=== PATIENT | female | born 1965 | race Caucasian/White ===

== ENCOUNTER 2019-09-24 09:54 | Outpatient (CLI) | payer MEDICARE, SELFPAY ==
--- NOTE | 2019-09-24 10:02 | MM_ITS ---
WS: [id number] BILATERAL DIGITAL SCREENING MAMMOGRAPHY WITH CAD CLINICAL INFORMATION: SCREENING HISTORY: Screening mammogram. No current complaints. COMPARISON: 2016 TECHNIQUE: Bilateral CC and MLO views. FINDINGS: Scattered fibroglandular densities bilaterally. Stable bilateral intramammary lymph nodes. No suspici ous focal mass, asymmetry, calcifications, or architectural distortion. No evidence of malignancy. MM/[place] [id number] IMPRESSION: BI-RADS: 2-Benign FOLLOW UP: 1 Year Follow-up Recommend return to annual screening mammography.
== END 2019-09-24 09:55 | disposition home or self-care (01) ==
LOC: RADSHAW 09:58
PROVIDERS: Family Provider Family Medicine; PCP Family Medicine; Visit Provider Family Medicine
DX: Z12.31 Encounter for screening mammogram for malignant neoplasm of breast (principal)
CPT/HCPCS: 77067

== ENCOUNTER → 2020-04-05 08:50 | Outpatient (BNVA) | payer MEDICARE, SELFPAY | PROVIDERS: Family Provider Family Medicine; PCP Family Medicine; Visit Provider Internal Medicine Rheumatology | DX: M54.89 Other dorsalgia (principal); Z11.59 Encounter for screening for other viral diseases; Z79.899 Other long term (current) drug therapy; Z11.1 Encounter for screening for respiratory tuberculosis; M25.50 Pain in unspecified joint; Z15.89 Genetic susceptibility to other disease; F17.210 Nicotine dependence, cigarettes, uncomplicated; G89.29 Other chronic pain | CPT/HCPCS: 36415; 80076; 82565; 85025; 85651; 86140; 86480; 86704; 86803; 86812; 87340; 99204 ==

== ENCOUNTER 2020-04-11 07:46 | Outpatient (CLI) | payer MEDICARE, SELFPAY ==
--- NOTE | 2020-04-11 08:00 | XR_ITS ---
WS: [id number] CHEST 2 VIEWS HISTORY: inflammatory arthritis COMPARISON: None available. Lungs: Clear with no abnormality. No pleural effusion or pneumothorax. Cardiac size: Normal. Mediastinum/Aorta: Normal mediastinum. Bones: Normal. Normal distal clavicles. XR/XR chest 2V* [id number] IMPRESSION: Normal chest.
--- NOTE | 2020-04-11 08:15 | XR_ITS ---
WS: [id number] RIGHT HAND: 3 VIEW(S) TECHNIQUE: PA, oblique and lateral. HISTORY: inflammatory arthritis COMPARISON: 03/07/2009 No acute fracture or dislocation. No soft tissue or bone abnormality. No erosions. Normal ulnar styloid. XR/XR hand RT min 3V* [id number] IMPRESSION: Normal RIGHT hand.
--- NOTE | 2020-04-11 08:30 | XR_ITS ---
WS: [id number] RIGHT FOOT: 3 VIEW(S) TECHNIQUE: AP, oblique and lateral. HISTORY: inflammatory arthritis COMPARISON: None available. No acute fracture or dislocation. Normal tarsal/metatarsal alignment. No soft tissue abnormality or bone destruction. XR/XR foot RT min 3V* [id number] IMPRESSION: Normal RIGHT foot.
--- NOTE | 2020-04-11 08:45 | XR_ITS ---
WS: [id number] CERVICAL SPINE 3 VIEWS HISTORY: inflammatory arthritis COMPARISON: 02/03/2013 Normal posterior lumbar alignment. Mild disc space narrowing at C5-6 with osteophytes. No fractures o r prevertebral soft tissue swelling. Lateral masses of C1 and C2 are aligned. Soft tissues are normal. XR/XR cervical spine 3V* [id number] IMPRESSION: Mild spondylosis at C5-6.
--- NOTE | 2020-04-11 11:00 | XR_ITS ---
WS: [id number] PELVIS: AP VIEW SUBMITTED HISTORY: inflammatory arthritis COMPARISON: None available. Prior posterior lumbar fusion at L5-S1. SI joints are symmetric. No erosions or sclerosis. Normal hip joints. No enthesopathy. XR/XR pelvis 1-2V* [id number] IMPRESSION: No inflammatory arthropathy.
--- NOTE | 2020-04-11 11:15 | XR_ITS ---
WS: [id number] LEFT HAND: 3 VIEW(S) TECHNIQUE: PA, oblique and lateral. HISTORY: inflammatory arthritis COMPARISON: 03/07/2009 No acute fracture or dislocation. No soft tissue or bone abnormality. No erosions or enthesitis or osteopenia. Radial styloid is normal. XR/XR hand LT min 3V* [id number] IMPRESSION: Normal LEFT hand.
--- NOTE | 2020-04-11 11:30 | XR_ITS ---
WS: [id number] LEFT FOOT: 3 VIEW(S) TECHNIQUE: AP, oblique and lateral. HISTORY: inflammatory arthritis COMPARISON: None available. No acute fracture or dislocation. No erosions or osteopenia. Normal tarsal/metatarsal alignment. No soft tissue abnormality or bone destruction. XR/XR foot LT min 3V* [id number] IMPRESSION: Normal LEFT foot.
== END 2020-04-11 07:47 | disposition home or self-care (01) ==
LOC: RADWPI 07:49
PROVIDERS: Family Provider Family Medicine; PCP Family Medicine; Visit Provider Internal Medicine Rheumatology
DX: M19.90 Unspecified osteoarthritis, unspecified site (principal); M47.812 Spondylosis without myelopathy or radiculopathy, cervical region
CPT/HCPCS: 71046; 72040; 72170; 73130; 73630

== ENCOUNTER → 2020-05-11 14:48 | Outpatient (BNVA) | payer MEDICARE, SELFPAY | PROVIDERS: Family Provider Family Medicine; PCP Family Medicine; Visit Provider Internal Medicine Rheumatology | DX: M25.50 Pain in unspecified joint (principal); Z15.89 Genetic susceptibility to other disease; Z79.899 Other long term (current) drug therapy; M54.5 Low back pain; G89.29 Other chronic pain; F17.210 Nicotine dependence, cigarettes, uncomplicated | CPT/HCPCS: 99214 ==

== ENCOUNTER → 2020-06-14 12:53 | Outpatient (BNVA) | payer MEDICARE, SELFPAY | PROVIDERS: Family Provider Family Medicine; PCP Family Medicine; Visit Provider Internal Medicine Rheumatology | DX: Z79.899 Other long term (current) drug therapy (principal) | CPT/HCPCS: 36415; 80076; 82565; 85025; 85651; 86140 ==

== ENCOUNTER 2020-06-19 13:09 | Outpatient (CLI) | payer MEDICARE, SELFPAY ==
--- NOTE | 2020-06-19 14:30 | CT_ITS ---
WS: [id number] CT PELVIS WITHOUT HISTORY: to rule out sacroiliitis TECHNIQUE: Contiguous imaging is performed of the pelvis without contrast. Coronal and sagittal refor mats are reviewed. All CT scans at [facility] use at least one of these dose optimization techniques: automated exposure control; mA and/or kV adjustment per patient size (includes targeted exams where dose is matched to clinical indication); or iterative reconstruction. DLP: 792.35 mGycm COMPARISON: 03/19/2010 Prior lumbar fusion at L5-S1. No acute fractures or bone destruction. The SI joints are symmetric alysia aterally. No fusion or sclerosis. Very small erosion noted involving the sacral side the LEFT SI join t measuring 3 mm. This erosion was not definitely seen on the study from 2009. There is no sclerosis or fusion. No pelvic masses. Urinary bladder is minimally distended. Medicinal tablet in the distal GI tract. CT/CT pelvis wo con [id number] IMPRESSION: 1. Single 3 mm erosion sacral side of the LEFT SI joint. 2. No fusion or ankylosis. 3. Prior L5-S1 posterior fusion.
== END 2020-06-19 13:10 | disposition home or self-care (01) ==
LOC: RADWPI 13:14
PROVIDERS: Family Provider Family Medicine; PCP Family Medicine; Visit Provider Internal Medicine Rheumatology
DX: Z15.89 Genetic susceptibility to other disease (principal); M19.90 Unspecified osteoarthritis, unspecified site; M54.5 Low back pain; G89.29 Other chronic pain; Z98.1 Arthrodesis status
CPT/HCPCS: 72192

== ENCOUNTER → 2020-08-08 12:49 | Outpatient (BNVA) | payer MEDICARE, SELFPAY | PROVIDERS: Family Provider Family Medicine; PCP Family Medicine; Visit Provider Internal Medicine Rheumatology | DX: M19.90 Unspecified osteoarthritis, unspecified site (principal); M54.5 Low back pain; G89.29 Other chronic pain; Z79.899 Other long term (current) drug therapy; Z15.89 Genetic susceptibility to other disease; M46.1 Sacroiliitis, not elsewhere classified; F17.210 Nicotine dependence, cigarettes, uncomplicated | CPT/HCPCS: 99214 ==

== ENCOUNTER → 2020-12-25 10:34 | Outpatient (BNVA) | payer MEDICARE, SELFPAY | PROVIDERS: PCP Nurse Practitioner Family; Visit Provider Internal Medicine Rheumatology | DX: M19.90 Unspecified osteoarthritis, unspecified site (principal); M54.89 Other dorsalgia; Z15.89 Genetic susceptibility to other disease; M45.9 Ankylosing spondylitis of unspecified sites in spine; M46.1 Sacroiliitis, not elsewhere classified; Z79.899 Other long term (current) drug therapy; F17.210 Nicotine dependence, cigarettes, uncomplicated | CPT/HCPCS: 99214 ==

== ENCOUNTER → 2021-04-09 13:28 | Outpatient (BNVA) | payer MEDICARE, SELFPAY | PROVIDERS: PCP Nurse Practitioner Family; Visit Provider Internal Medicine Rheumatology | DX: M19.90 Unspecified osteoarthritis, unspecified site (principal); M54.89 Other dorsalgia; Z15.89 Genetic susceptibility to other disease; M45.9 Ankylosing spondylitis of unspecified sites in spine; Z79.899 Other long term (current) drug therapy; M46.1 Sacroiliitis, not elsewhere classified; F17.200 Nicotine dependence, unspecified, uncomplicated | CPT/HCPCS: 99214 ==

== ENCOUNTER 2021-06-06 09:49 | Outpatient (CLI) | payer MEDICARE, SELFPAY ==
--- NOTE | 2021-06-06 09:57 | MM_ITS ---
WS: [id number] BILATERAL SCREENING DIGITAL MAMMOGRAM WITH CAD HISTORY: SCREENING COMPARISON: 09/24/2019, 04/22/2017 Bilateral CC and MLO views submitted. Computer aided detection analyzed. Breast composition: There are scattered areas of fibroglandular density. No suspicious masses, microc alcifications or architectural distortion. Asymmetries in the RIGHT breast are stable. Benign calcifi cations are scattered within each breast. MM/[place] [id number] IMPRESSION: BI-RADS: 2-Benign FOLLOW UP: 1 Year Follow-up
== END 2021-06-06 09:50 | disposition home or self-care (01) ==
LOC: RADSHAW 09:52
PROVIDERS: PCP Nurse Practitioner Family; Visit Provider Nurse Practitioner Family
DX: Z12.31 Encounter for screening mammogram for malignant neoplasm of breast (principal)
CPT/HCPCS: 77067

== ENCOUNTER → 2021-06-28 09:51 | Outpatient (BNVA) | payer MEDICARE, SELFPAY | PROVIDERS: PCP Nurse Practitioner Family; Visit Provider Internal Medicine Rheumatology | DX: M19.90 Unspecified osteoarthritis, unspecified site (principal); M45.9 Ankylosing spondylitis of unspecified sites in spine; Z79.899 Other long term (current) drug therapy | CPT/HCPCS: 36415; 80076; 82565; 85025; 86140 ==

== ENCOUNTER → 2021-08-14 13:20 | Outpatient (BNVA) | payer MEDICARE, SELFPAY | PROVIDERS: PCP Nurse Practitioner Family; Visit Provider Internal Medicine Rheumatology | DX: M45.9 Ankylosing spondylitis of unspecified sites in spine (principal); Z15.89 Genetic susceptibility to other disease; M46.1 Sacroiliitis, not elsewhere classified; Z79.899 Other long term (current) drug therapy; Z98.1 Arthrodesis status; Z71.89 Other specified counseling | CPT/HCPCS: 99214 ==

== ENCOUNTER → 2021-12-12 10:25 | Outpatient (BNVA) | payer MEDICARE, SELFPAY | PROVIDERS: PCP Nurse Practitioner Family; Visit Provider Internal Medicine Rheumatology | DX: M19.90 Unspecified osteoarthritis, unspecified site (principal); M54.89 Other dorsalgia; M45.9 Ankylosing spondylitis of unspecified sites in spine; Z79.899 Other long term (current) drug therapy | CPT/HCPCS: 80076; 82565; 85025; 86140 ==

== ENCOUNTER → 2021-12-20 09:14 | Outpatient (BNVA) | payer MEDICARE, SELFPAY | PROVIDERS: PCP Nurse Practitioner Family; Visit Provider Internal Medicine Rheumatology | DX: M19.90 Unspecified osteoarthritis, unspecified site (principal); Z15.89 Genetic susceptibility to other disease; M45.9 Ankylosing spondylitis of unspecified sites in spine; M46.1 Sacroiliitis, not elsewhere classified; Z79.899 Other long term (current) drug therapy; Z71.89 Other specified counseling | CPT/HCPCS: 99214 ==

== ENCOUNTER → 2022-04-03 10:02 | Outpatient (BNVA) | payer MEDICARE, SELFPAY | PROVIDERS: PCP Nurse Practitioner Family; Visit Provider Internal Medicine Rheumatology | DX: Z98.1 Arthrodesis status (principal); M19.90 Unspecified osteoarthritis, unspecified site; Z15.89 Genetic susceptibility to other disease; M45.9 Ankylosing spondylitis of unspecified sites in spine; M46.1 Sacroiliitis, not elsewhere classified; Z79.899 Other long term (current) drug therapy; Z71.89 Other specified counseling | CPT/HCPCS: 99214 ==

== ENCOUNTER → 2022-07-29 10:47 | Outpatient (BNVA) | payer MEDICARE, SELFPAY | PROVIDERS: PCP Nurse Practitioner Family; Visit Provider Internal Medicine Rheumatology | DX: M46.90 Unspecified inflammatory spondylopathy, site unspecified (principal); Z79.899 Other long term (current) drug therapy; Z15.89 Genetic susceptibility to other disease; M46.1 Sacroiliitis, not elsewhere classified; Z71.89 Other specified counseling; Z98.1 Arthrodesis status | CPT/HCPCS: 80076; 82565; 85025; 86140; 99214 ==

== ENCOUNTER 2022-09-23 13:49 | Outpatient (CLI) | payer MEDICARE, SELFPAY ==
[2022-09-23 14:45] LABS: Basophils # 0.1 10^3/uL (0.0-0.1); Basophils % 0.8 %; Eosinophils # 0.1 10^3/uL (0.0-0.8); Eosinophils % 0.6 %; Hematocrit 47.2 % (37.0-47.0); Hemoglobin 15.2 g/dL (11.5-15.3); Lymphocytes # 2.1 10^3/uL (0.8-4.8); Lymphocytes % 26.5 %; Mean Corpuscular HGB Conc 32.2 g/dL (30.0-36.0); Mean Corpuscular Hemoglobin 32.6 pg (28.0-34.0); Mean Corpuscular Volume 101.3 fl (81-99); Mean Platelet Volume 10.6 fL (7.4-10.4); Monocytes # 0.5 10^3/uL (0.2-0.9); Monocytes % 6.5 %; Neutrophils # 5.11 10^3/uL (1.8-7.7); Neutrophils % 65.1 %; Nucleated Red Blood Cells % 0 %; Platelet Count 195 10^3/cmm (130-400); Red Blood Count 4.66 10^6/uL (4.1-5.3); Red Cell Distribution Width 12.7 % (12.1-15.1); White Blood Count 7.9 10^3/uL (4.0-10.0)
[2022-09-23 15:02] LABS: Albumin Level 4.4 g/dL (3.5-5.2); Alkaline Phosphatase 57 U/L (35-105); Globulin 3.2 g/dL (1.3-4.6); Glomerular Filtration Rate 86.9 mL/min (90-130); Total Bilirubin 0.6 mg/dL (0.15-1.2); Total Protein 7.6 g/dL (6.6-8.7)
[2022-09-23 15:07] LABS: Alanine Aminotransferase 37 U/L (0-33); Aspartate Amino Transferase 36 U/L (0-32)
== END 2022-09-23 13:50 | disposition home or self-care (01) ==
LOC: LAB 13:51
PROVIDERS: PCP Nurse Practitioner Family; Visit Provider Internal Medicine Rheumatology
DX: M45.9 Ankylosing spondylitis of unspecified sites in spine (principal); Z79.899 Other long term (current) drug therapy; M19.90 Unspecified osteoarthritis, unspecified site
CPT/HCPCS: 36415; 80076; 82565; 85025; 86140

== ENCOUNTER → 2022-10-08 10:22 | Outpatient (BNVA) | payer MEDICARE, SELFPAY | PROVIDERS: PCP Nurse Practitioner Family; Visit Provider Internal Medicine Rheumatology | DX: M46.90 Unspecified inflammatory spondylopathy, site unspecified (principal); Z15.89 Genetic susceptibility to other disease; M46.1 Sacroiliitis, not elsewhere classified; Z79.899 Other long term (current) drug therapy; Z71.89 Other specified counseling; Z98.1 Arthrodesis status; Z79.52 Long term (current) use of systemic steroids; K21.9 Gastro-esophageal reflux disease without esophagitis | CPT/HCPCS: 99214 ==

== ENCOUNTER → 2023-03-10 14:03 | Outpatient (BNVA) | payer MEDICARE, SELFPAY | PROVIDERS: PCP Nurse Practitioner Family; Visit Provider Internal Medicine Rheumatology | DX: Z15.89 Genetic susceptibility to other disease (principal); M46.90 Unspecified inflammatory spondylopathy, site unspecified; Z79.899 Other long term (current) drug therapy; M46.1 Sacroiliitis, not elsewhere classified; Z71.89 Other specified counseling | CPT/HCPCS: 36415; 72040; 80076; 82565; 85025; 86140; 99214 ==

== ENCOUNTER 2023-03-22 22:37 | Inpatient (IN) | payer MEDICARE, SELFPAY ==
[2023-03-22 22:39] VITALS: BP 165/75; PULSE 88; RESP 17; TEMP 38.3; O2SAT 91; BMI 35.5
--- NOTE | 2023-03-22 22:41 | XRR_ITS ---
PROCEDURE INFORMATION: Exam: XR Chest Exam date and time: 03/22/2023 10:57 PM Age: 58 years old Clinical indication: Fever TECHNIQUE: Imaging protocol: Radiologic exam of the chest. Views: 1 view. COMPARISON: CR XR chest 2V* [id number] 04/11/2020 8:12 AM FINDINGS: Lungs: Unremarkable. No consolidation. Pleural spaces: Unremarkable. No pleural effusion. No pneumothorax. Heart/Mediastinum: Unremarkable. No cardiomegaly. Bones/joints: Unremarkable. XR/XR chest 1V portable [id number] IMPRESSION: No acute findings.
--- NOTE | 2023-03-22 22:41 | CTR_ITS ---
PROCEDURE INFORMATION: Exam: CT Abdomen And Pelvis With Contrast Exam date and time: 03/22/2023 10:57 PM Age: 58 years old Clinical indication: Fever and nausea and vomiting; Prior surgery; Surgery date: 6+ months; Surgery type: Gb. Lumbar. Hysto. Csection. Patient HX: Fever with n/v. History of ibs. TECHNIQUE: Imaging protocol: Computed tomography of the abdomen and pelvis with contrast. Radiation optimization: All CT scans at this facility use at least one of these dose optimization techniques: automated exposure control; mA and/or kV adjustment per patient size (includes targeted exams where dose is matched to clinical indication); or iterative reconstruction. Contrast material: OMNI 350; Contrast volume: 100 ml; Contrast route: INTRAVENOUS (IV); REPORTING DATA: Count of CT and Cardiac NM exams in prior 12 months: This patient has received 0 known CTs and 0 known cardiac nuclear medicine studies in the 12 months prior to the current study. COMPARISON: CT pelvis wo con [id number] 06/19/2020 1:24 PM RADIATION DOSE METRICS: Total DLP (mGy-cm): 1061.11 FINDINGS: Liver: Normal. No mass. Gallbladder and bile ducts: Surgical clips in the gallbladder fossa consistent with cholecystectomy. Pancreas: Normal. No ductal dilation. Spleen: Normal. No splenomegaly. Adrenal glands: Normal. No mass. Kidneys and ureters: Normal. No hydronephrosis. Stomach and bowel: Unremarkable. No obstruction. No mucosal thickening. Appendix: No evidence of appendicitis. Intraperitoneal space: Unremarkable. No free air. No significant fluid collection. Vasculature: Calcification of the abdominal aorta and/or iliac arteries consistent with atherosclerotic vessel disease. Lymph nodes: Unremarkable. No enlarged lymph nodes. Urinary bladder: Unremarkable as visualized. Reproductive: Stable hysterectomy. Bones/joints: Unremarkable. No acute fracture. Soft tissues: Unremarkable. Other findings: Stable postoperative changes over the lumbar spine with metallic fixation and metallic artifact. CT/CT abdomen pelvis w con* [id number] IMPRESSION: No acute findings.
--- NOTE | 2023-03-22 22:57 | ED_ITS ---
HPI - Fever General: Chief Complaint: Fever Stated Complaint: FEVER Time Seen by Provider: 03/22/23 22:41 Source: patient and EMS Mode of arrival: EMS Limitations: no limitations History of Present Illness: 58-year-old female here by EMS with a fever. Per EMS patient had a fever 102 at home she had some nausea vomiting some slight confusion at home as well. She denies any pain to me she had a mild cough. Denies any worsening improving factors. Blood pressure here is normal Associated symptoms: Reports chills, nausea and vomiting; Deny abdominal pain, chest pain, diarrhea, dysuria or headache(s) Review of Systems Const: Reports: fever(s), chills and body aches; Denies: change in appetite ENMT: Denies: throat pain or dental pain Card: Denies: chest pain Resp: Denies: dyspnea GI: Reports: nausea and vomiting; Denies: abdominal pain or diarrhea : Denies: dysuria Musc: Denies: neck pain or back pain Skin/Breast: Denies: rash Neuro: Denies: headache(s) PFSH ED PFSH: Medical History Ankylosing spondylitis Axial spondyloarthritis Chronic low back pain Depression Fibromyalgia GERD (gastroesophageal reflux disease) High risk medication use HLA B27 (HLA B27 positive) Hypertension Immunization counseling Inflammatory arthritis Inflammatory back pain Irritable bowel syndrome Osteoarthritis Sacroiliitis Surgical History History of section History of cholecystectomy History of hysterectomy Previous back surgery Family History Other CAD (coronary artery disease) Diabetes Hypertension Stroke Denies family history of Rheumatoid arthritis Lupus Cancer Social History Smoking and tobacco status: never smoked Alcohol intake: never Substance/Drug Use: never Physical Exam Const: COMMON NORMALS: patient oriented x3 HENMT: COMMON NORMALS: normocephalic and atraumatic HEAD & SCALP: normocephalic and atraumatic Eye: COMMON NORMALS: Equal, round and reactive pupils present and EOMs intact bilaterally PUPIL: Yes Equal, round and reactive pupils present Neck/C-Spine: COMMON NORMALS: full ROM and supple Chest: COMMONS NORMALS: normal inspection of the chest and normal palpation of entire chest wall Resp: COMMON NORMALS: normal respiratory effort, No retractions, No use of accessory muscles and clear to auscultation bilaterally AUSCULTATION: clear to auscultation bilaterally Cardio: COMMON NORMALS: regular rate, regular rhythm and No murmurs present (Cardio) RATE: regular rate RHYTHM: regular rhythm GI: COMMON NORMALS: Normal to inspection, nondistended, normoactive bowel sounds present, Soft to palpation, non-tender and no masses PALPATION: Yes Soft to palpation Extremity: COMMON NORMALS: normal to inspection and full ROM Neuro: COMMON NORMALS: patient oriented x3, moves all extremities and no focal motor deficits Psych: COMMON NORMALS: mental status grossly normal, Normal thought process present and cooperative THOUGHT PROCESS: Normal thought process present Skin: COMMON NORMALS: no rashes or lesions noted and no wounds GENERAL SKIN EXAM: no rashes or lesions noted Course Vital Signs: Vital signs: Vital Signs Temperature 99.5 F 03/23/23 00:41 Pulse Rate 78 03/23/23 00:47 Respiratory Rate 18 03/23/23 00:47 Blood Pressure 148/66 03/23/23 00:47 Pulse Oximetry 94 03/23/23 00:47 Oxygen Delivery Me thod Room Air 03/23/23 00:47 MDM - Fever Medical Decision Making Patient presents with fever along with some confusion. Her blood pressures been normal she has no signs of septic shock she does have a urinary tract infection spoke to hospitalist will admit patient given IV antibiotics here. Medical Records I reviewed the patient's medical records. Lab Data I reviewed the patient's lab results. 03/22/23 23:19 03/22/23 23:19 Radiology Impressions Abdomen/Pelvis CT 03/22/23 22:41 IMPRESSION: No acute findings. Chest X-Ray 03/22/23 22:41 IMPRESSION: No acute findings. Head CT 03/22/23 23:13 IMPRESSION: 1. Enhancement of the intracranial blood vessels from recent CT abdomen pelvis with contrast. 2. No acute intracranial findings. Laboratory Results WBC 11.2 10^3/uL (4.0-10.0) H 03/22/23 23:19 RBC 4.41 10^6/uL (4.1-5.3) 03/22/23 23:19 Hgb 14.2 g/dL (11.5-15.3) 03/22/23 23:19 Hct 41.9 % (37.0-47.0) 03/22/23 23:19 MCV 95.0 fl (81-99) 03/22/23 23:19 MCH 32.2 pg (28.0-34.0) 03/22/23 23:19 MCHC 33.9 g/dL (30.0-36.0) 03/22/23 23:19 RDW 12.4 % (12.1-15.1) 03/22/23 23:19 Plt Count 152 10^3/cmm (130-400) 03/22/23 23:19 MPV 10.0 fL (7.4-10.4) 03/22/23 23:19 Neut % (Auto) 81.0 % 03/22/23 23:19 Lymph % (Auto) 9.7 % 03/22/23 23:19 [place] % (Auto) 8.5 % 03/22/23 23:19 Eos % (Auto) 0.1 % 03/22/23 23:19 Baso % (Auto) 0.3 % 03/22/23 23:19 Neut # (Auto) 9.05 10^3/uL (1.8-7.7) H 03/22/23 23:19 Lymph # (Auto) 1.1 10^3/uL (0.8-4.8) 03/22/23 23:19 [place] # (Auto) 1.0 10^3/uL (0.2-0.9) H 03/22/23 23:19 Eos # (Auto) 0.0 10^3/uL (0.0-0.8) 03/22/23 23:19 Baso # (Auto) 0.0 10^3/uL (0.0-0.1) 03/22/23 23:19 Nucleated RBC % (auto) 0 % 03/22/23 23:19 Nucleated RBCs # 0.0 /100WBC 03/22/23 23:19 PT 14.20 SECONDS (12.1-14.9) 03/22/23 23:19 INR 1.07 (0.8-1.2) 03/22/23 23:19 Sodium 139 mmol/L (136-145) 03/22/23 23:19 Potassium 3.0 mmol/L (3.5-5.1) L 03/22/23 23:19 Chloride 98 mmol/L (98-107) 03/22/23 23:19 Carbon Dioxide 30 mmol/L (22-29) H 03/22/23 23:19 Anion Gap 14.0 (5-19) 03/22/23 23:19 BUN 11 mg/dL (6-20) 03/22/23 23:19 Creatinine 1.0 mg/dL (0.5-0.9) H 03/22/23 23:19 GFR Calculation 57.4 mL/min (90-130) L 03/22/23 23:19 Glucose 117 mg/dL (65-115) H 03/22/23 23:19 Calculated Osmolality 288 mOsm/kg (285-295) 03/22/23 23:19 Lactic Acid 1.5 mmol/L (0.5-2.2) 03/22/23 23:19 Calcium 8.8 mg/dL (8.5-10.5) 03/22/23 23:19 Total Bilirubin 0.6 mg/dL (0.15-1.2) 03/22/23 23:19 AST 18 U/L (0-32) 03/22/23 23:19 ALT 25 U/L (0-33) 03/22/23 23:19 Alkaline Phosphatase 60 U/L (35-105) 03/22/23 23:19 Total Protein 6.6 g/dL (6.6-8.7) 03/22/23 23:19 Albumin 4.0 g/dL (3.5-5.2) 03/22/23 23:19 Globulin 2.6 g/dL (1.3-4.6) 03/22/23 23:19 Lipase 22 U/L (13-60) 03/22/23 23:19 Urine Color Dark yellow (Yellow) 03/23/23 00:22 Urine Appearance Clear (CLEAR) 03/23/23 00:22 Urine pH 6.5 (5-7) 03/23/23 00:22 Ur Specific [place] 1.000 (1.005-1.030) L 03/23/23 00:22 Urine Protein 1+ (Negative) H 03/23/23 00:22 Urine Glucose (UA) Norm (Normal) 03/23/23 00:22 Urine Ketones Negative (Negative) 03/23/23 00:22 Urine Blood 2+ (Negative) H 03/23/23 00:22 Urine Nitrate Positive (Negative) H 03/23/23 00:22 Urine Bilirubin Neg (Negative) 03/23/23 00:22 Urine Urobilinogen Norm mg/dL (Negative) 03/23/23 00:22 Ur Leukocyte Esterase Trace (Negative) H 03/23/23 00:22 Urine RBC 5-10 /hpf (0-2) H 03/23/23 00:22 Urine WBC 25-40 /hpf (0-5) H 03/23/23 00:22 Ur Squamous Epith Cells 10-15 /hpf (0-5) H 03/23/23 00:22 Amorphous Sediment Not Reportable 03/23/23 00:22 Urine Bacteria 2+ /hpf (NONE) H 03/23/23 00:22 SARS-CoV-2 Ag (Rapid) negative (Negative) 03/22/23 23:01 Discharge Plan Discharge Condition: Stable Prescriptions: No Action trazodone 50 mg tablet 50 mg PO DAILY gabapentin 600 mg tablet 600 mg PO DAILY lamotrigine 200 mg tablet 200 mg PO DAILY cetirizine 10 mg capsule 10 mg PO DAILY hydrocodone-acetaminophen 7.5-325 mg tablet 1 tab PO Q4H PRN baclofen 20 mg tablet 20 mg PO DAILY losartan-hydrochlorothiazide 100-25 mg tablet 1 tab PO DAILY simvastatin 20 mg tablet 20 mg PO DAILY diclofenac sodium 1 % gel 4 g topical QID Qty: 100 2RF Rx Instructions: apply to affected area as needed pantoprazole 40 mg tablet,delayed release (DR/EC) See Rx Instructions PO DAILY Qty: 60 3RF Rx Instructions: take 1 in AM 30 minutes before meal and 1 in radha. PO daily; prednisone 5 mg tablet See Rx Instructions .ROUTE .COMPLEX Qty: 90 1RF Dose Instruction: TAKE ONE TABLET BY MOUTH DAILY Rx Instructions: TAKE ONE TABLET BY MOUTH DAILY Cosentyx (2 Syringes) 150 mg/mL syringe 300 mg SUBCUT .[id number] Qty: 2 3RF sulfasalazine 500 mg tablet 1 g PO BID Qty: 120 3RF Rx Instructions: take with food pilocarpine HCl 5 mg tablet 5 mg PO TID Qty: 90 3RF prednisone 20 mg tablet See Rx Instructions .ROUTE .COMPLEX Qty: 30 1RF Dose Instruction: TAKE 1 TO 2 TABLETS BY MOUTH DAILY FOR 3 TO 7 DAYS, NEEDED FOR arthritis flare Rx Instructions: TAKE 1 TO 2 TABLETS BY MOUTH DAILY FOR 3 TO 7 DAYS, NEEDED FOR arthritis flare Referrals: Nora Bryant FNP [Primary Care Provider] - Coding Level of Care Code ED 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
[2023-03-22] MEDS: iohexol 350 mg/mL 500 mL Btl (per mL) IV (23:08)
[2023-03-22] MEDS: sodium chloride 0.9% 1,000 ML 999 ML IV (23:09)
[2023-03-22] MEDS: acetaminophen 500 mg Tablet 1000 MG PO (23:09)
--- NOTE | 2023-03-22 23:13 | CTR_ITS ---
PROCEDURE INFORMATION: Exam: CT Head Without Contrast Exam date and time: 03/22/2023 11:35 PM Age: 58 years old Clinical indication: Altered mental status/memory loss and fever; Patient HX: Fever with lethargy; Additional info: AMS TECHNIQUE: Imaging protocol: Computed tomography of the head without contrast. Radiation optimization: All CT scans at this facility use at least one of these dose optimization techniques: automated exposure control; mA and/or kV adjustment per patient size (includes targeted exams where dose is matched to clinical indication); or iterative reconstruction. REPORTING DATA: Count of CT and Cardiac NM exams in prior 12 months: This patient has received 0 known CTs and 0 known cardiac nuclear medicine studies in the 12 months prior to the current study. COMPARISON: CR XR cervical spine 3V* [id number] 03/10/2023 3:22 PM RADIATION DOSE METRICS: Total DLP (mGy-cm): 1025.44 FINDINGS: Brain: Enhancement of the intracranial blood vessels from recent CT abdomen pelvis with contrast. Cerebral ventricles: No ventriculomegaly. Paranasal sinuses: Visualized sinuses are unremarkable. No fluid levels. Mastoid air cells: Visualized mastoid air cells are well aerated. Bones/joints: Unremarkable. No acute fracture. Soft tissues: Unremarkable. CT/CT head wo con* [id number] IMPRESSION: 1. Enhancement of the intracranial blood vessels from recent CT abdomen pelvis with contrast. 2. No acute intracranial findings.
--- NOTE | 2023-03-22 23:13 | ECG_ITS ---
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 Measurements Intervals [place] Rate: 86 P: 62 MT: 156 QRS: -3 QRSD: 165 T: 101 QT: 435 QTc: 523 Interpretive Statements SINUS RHYTHM LEFT BUNDLE BRANCH BLOCK [120+ ms QRS DURATION, 80+ ms Q/S IN V1/V2, 85+ ms R IN I/aVL/V5/V6] No previous ECG available for comparison Electronically Signed On 03-23-2023 11:24:07 CDT by Alexandra Nguyen M.D. [id number]
[2023-03-22 23:14] VITALS: BP 165/84; PULSE 87; RESP 18; O2SAT 93
[2023-03-22 23:34] LABS: SARS Covid-2 Antigen negative (Negative)
[2023-03-22 23:38] LABS: Basophils % 0.3 %; Eosinophils % 0.1 %; Hematocrit 41.9 % (37.0-47.0); Hemoglobin 14.2 g/dL (11.5-15.3); Lymphocytes # 1.1 10^3/uL (0.8-4.8); Lymphocytes % 9.7 %; Mean Corpuscular HGB Conc 33.9 g/dL (30.0-36.0); Mean Corpuscular Hemoglobin 32.2 pg (28.0-34.0); Monocytes % 8.5 %; Neutrophils # 9.05 10^3/uL (1.8-7.7); Nucleated Red Blood Cells % 0 %; Platelet Count 152 10^3/cmm (130-400); Red Blood Count 4.41 10^6/uL (4.1-5.3); Red Cell Distribution Width 12.4 % (12.1-15.1); White Blood Count 11.2 10^3/uL (4.0-10.0)
[2023-03-22 23:47] LABS: INR 1.07 (0.8-1.2)
[2023-03-22 23:55] LABS: Lactic Sepsis W/Reflex 1.5 mmol/L (0.5-2.2)
[2023-03-22 23:56] LABS: Alanine Aminotransferase 25 U/L (0-33); Alkaline Phosphatase 60 U/L (35-105); Aspartate Amino Transferase 18 U/L (0-32); Blood Urea Nitrogen 11 mg/dL (6-20); Calcium 8.8 mg/dL (8.5-10.5); Chloride 98 mmol/L (98-107); Globulin 2.6 g/dL (1.3-4.6); Lipase 22 U/L (13-60); Osmolality Calculated 288 mOsm/kg (285-295); Sodium 139 mmol/L (136-145); Total Bilirubin 0.6 mg/dL (0.15-1.2); Total Protein 6.6 g/dL (6.6-8.7)
[2023-03-23] VITALS (12 sets, daily range): BP systolic 118–170; BP diastolic 66–81; PULSE 76–99; RESP 15–23; TEMP 36.3–37.5; O2SAT 90–98
[2023-03-23 00:05] LABS: Carbon Dioxide 30 mmol/L (22-29); Glomerular Filtration Rate 57.4 mL/min (90-130); Glucose 117 mg/dL (65-115)
[2023-03-23 00:32] LABS: Add Urine Microscopic? YES; Bilirubin Urine Neg (Negative); Blood Urine 2+ (Negative); Glucose Urine UA Norm (Normal); Ketones Urine Negative (Negative); Leukocyte Esterase Urine Trace (Negative); Nitrate Urine Positive (Negative); Protein Urine 1+ (Negative); Urine Appearance Clear (CLEAR); Urine Color Dark Yellow (Yellow); Urobilinogen Urine Norm (Negative); pH Urine 6.5 (5-7)
[2023-03-23 00:34] LABS: WBC Urine 25-40 /hpf (0-5)
[2023-03-23 00:35] LABS: Bacteria Urine 2+ /hpf
[2023-03-23] MEDS: sodium chloride 0.9% 1,000 ML 999 ML IV (00:39)
[2023-03-23] MEDS: cefTRIAXone 1,000 MG in sodium chloride 0.9% (plus) 50 ML 100 MG IV ×2 (00:45→23:05)
--- NOTE | 2023-03-23 01:00 | PM.HP ---
Providers/Chief Complaint Admitting Physician: Tuan Clayton MD Primary Care Provider: Nora Bryant Chief Complaint: FEVER History of Present Illness Darshana Govea is a 58 year old female presents to the emergency department with 2 days of illness. She has had some temperature at home. Tonight she was confused. Temperature as high as 102. She has had some vomiting, right back pain. Family reports her confusion is less already. She denies any headache or neck pain. Does not relate any abdominal discomfort currently. Does relate she has had some painful urination lately. No rashes. No significant ill contacts. In the emergency department a blood culture was drawn, ceftriaxone was given. I have ordered a TSH, urine culture, magnesium, and potassium Review of Systems General: Reports: 10 or more systems reviewed and unremarkable except in HPI and below Card: Denies: chest pain Resp: Reports: non-productive cough (Patient reports is chronic from smoking); Denies: dyspnea GI: Reports: nausea and vomiting; Denies: abdominal pain, hematemesis, hematochezia or melena Medications/Allergies Home Medications Medication Instructions Recorded Confirmed Last Taken Type baclofen 20 mg tablet 20 mg PO DAILY 03/30/20 03/10/23 Unknown History cetirizine 10 mg capsule 10 mg PO DAILY 03/30/20 03/10/23 Unknown History gabapentin 600 mg tablet 600 mg PO DAILY 03/30/20 03/10/23 Unknown History hydrocodone 7.5 mg-acetaminophen 1 tab PO Q4H PRN 03/30/20 03/10/23 Unknown History 325 mg tablet lamotrigine 200 mg tablet 200 mg PO DAILY 03/30/20 03/10/23 Unknown History losartan 100 1 tab PO DAILY 03/30/20 03/10/23 Unknown History mg-hydrochlorothiazide 25 mg tablet simvastatin 20 mg tablet 20 mg PO DAILY 03/30/20 03/10/23 Unknown History trazodone 50 mg tablet 50 mg PO DAILY 03/30/20 03/10/23 Unknown History prednisone 20 mg tablet See Rx Instructions .Route 12/20/22 03/10/23 Unknown Rx .COMPLEX #30 tabs diclofenac sodium 1 % topical gel 4 g topical QID #100 grams 03/10/23 03/10/23 Unknown Rx pantoprazole 40 mg tablet,delayed See Rx Instructions PO DAILY #60 03/10/23 03/10/23 Unknown Rx release tabs pilocarpine HCl 5 mg tablet 5 mg PO TID #90 tabs 03/10/23 03/10/23 Unknown Rx prednisone 5 mg tablet See Rx Instructions .Route 03/10/23 03/10/23 Unknown Rx .COMPLEX #90 tabs secukinumab 150 mg/mL subcutaneous 300 mg (2 mL) SUBCUT .F8ojbgn #2 mL 03/10/23 03/10/23 Unknown Rx syringe (Cosentyx 300 mg/2 Syringes () sulfasalazine 500 mg tablet 1 g PO BID #120 tabs 03/10/23 03/10/23 Unknown Rx Allergies Allergy/AdvReac Type Severity Reaction Status Date / Time lisinopril Allergy Unknown Verified 03/10/23 14:29 PFSH Acute PFSH: Medical History (Updated 03/23/23 @ 01:09 by Tuan Clayton MD) Ankylosing spondylitis Axial spondyloarthritis Chronic low back pain Depression Fibromyalgia GERD (gastroesophageal reflux disease) High risk medication use HLA B27 (HLA B27 positive) Hyperlipidemia Hypertension Immunization counseling Inflammatory arthritis Inflammatory back pain Irritable bowel syndrome Osteoarthritis Sacroiliitis Surgical History History of section History of cholecystectomy History of hysterectomy Previous back surgery Family History Other CAD (coronary artery disease) Diabetes Hypertension Stroke Denies family history of Rheumatoid arthritis Lupus Cancer Social History (Updated 03/23/23 @ 01:03 by Tuan Clayton MD) Smoking and tobacco status: current every day smoker Alcohol intake: never Substance/Drug Use: never Vitals/I&O/Wt Last Vital Signs Temp 99.5 F 03/23/23 00:41 Pulse 78 03/23/23 00:47 Resp 18 03/23/23 00:47 BP 148/66 03/23/23 00:47 Pulse Ox 94 03/23/23 00:47 O2 Del Method Room Air 03/23/23 00:47 03/22/23 03/22/23 03/23/23 14:59 22:59 06:59 Intake Total 1000 / 1000 Balance 1000 / 1000 Weight last 48 hrs Weight 99.79 kg Physical Exam Narrative: General exam is a white female, who comes alert when I enter the room, who is a little bit slow to respond but appropriate. Family is in room as well. Note that she had a temperature of 102 prior to the hospital and it is now 99.5. HEENT: Atraumatic and normocephalic. Oropharynx clear Neck is supple no lymphadenopathy thyromegaly Cardiovascular regular rate and rhythm without murmur, no S3 or S4 Lungs clear no wheezing or crackles Abdomen is soft positive bowel sounds. No obvious organomegaly Back demonstrates no rash or bruising exam is deferred Extremities no cyanosis clubbing or edema, cap refill brisk Skin no rash Neuro no focal deficits Data 03/22/23 23:19 03/22/23 23:19 Other Labs: INR is normal LFTs are normal Urinalysis with 5-10 red blood cells, 25-40 whites, 10-15 squamous. 2+ bacteria and positive nitrates. Rapid COVID-negative Head CT no acute findings Chest x-ray which I reviewed demonstrates no infiltrate Abdominal pelvis CT with contrast no acute findings EKG sinus rhythm, heart rate 86, left bundle branch block Micro: Microbiology 03/22/23 23:29 Blood Culture - Preliminary Blood SPECIMEN COLLECTED 03/22/23 23:19 Blood Culture - Preliminary Blood SPECIMEN COLLECTED A&P Assessment and plan (1) UTI (urinary tract infection): Patient presents with symptoms of UTI She has fever, slight elevation of white blood cell count, acute encephalopathy. Secondary to this it is considered complicated. She also is immunocompromised as she is on prednisone daily for her ankylosing spondylitis. Blood and urine cultures will be drawn Rocephin was started in the emergency department. Continue 1 g IV every 12 hours Secondary to encephalopathy, she will be made a full admission No evidence of obstruction or abscess on CT (2) Fever: See above (3) Hypokalemia: Supplement Recheck potassium level tomorrow Check magnesium level (4) Acute encephalopathy: Consistent with acute metabolic encephalopathy from UTI Follow for resolution Hold muscle relaxant, Neurontin, lamotrigine, until reassessment of mental status tomorrow. (5) Ankylosing spondylitis: Increase prednisone to 5 mg twice daily, stress dosing secondary to illness Hold MAB Plan Acute kidney injury. Continue hydration. Tobacco dependency. Encouraged abstinence. Multiple other medical problems as outlined in past medical history Full code Lovenox for DVT prophylaxis Attestations Medical Necessity Statement*: Will need greater than 2 midnight stay secondary to complicated UTI requiring IV antibiotics with evidence of endorgan dysfunction Diagnoses UTI (urinary tract infection) N39.0 Fever R50.9 Hypokalemia E87.6 Acute encephalopathy G93.40 Ankylosing spondylitis M45.9 Time Spent (min) 47
--- NOTE | 2023-03-23 01:17 | PC.NURSE ---
REPORT CALLED TO VARUN KEARNEY ON [facility].
[2023-03-23 01:42] LABS: Magnesium 1.7 mg/dL (1.7-2.3); Thyroid Stimulating Hormone 0.86 uIU/mL (0.27-4.20)
[2023-03-23] MEDS: lidocaine 1% 5 ML in potassium chloride premix 100 ML 26.25 ML IV (02:40)
[2023-03-23] MEDS: enoxaparin 40 mg/0.4 mL Syringe SUBCUT (02:40)
[2023-03-23] MEDS: sodium chloride 0.9% 1,000 ML 100 ML IV ×3 (02:44→22:29)
[2023-03-23] MEDS: ondansetron 2 mg/ML SDV 2 mL 4 MG IVP (04:27)
--- NOTE | 2023-03-23 04:44 | PC.NURSE ---
patient has home meds in [facility]
[2023-03-23] MEDS: HYDROcodone-acetaminophen 5-325 mg Tablet 1 TAB PO ×4 (06:34→23:04)
[2023-03-23] MEDS: pantoprazole DR 40 mg Tablet PO ×2 (08:41→17:25)
[2023-03-23] MEDS: predniSONE 5 mg Tablet PO ×2 (08:41→17:25)
[2023-03-23] MEDS: nicotine 21 mg Patch 1 PATCH TRANSDERMA (16:24)
[2023-03-23] MEDS: ipratropium-albuterol 3 mL Neb INHALATION ×2 (17:03→19:46)
[2023-03-23] MEDS: atorvastatin 40 mg Tablet PO (17:25)
--- NOTE | 2023-03-23 18:26 | PM.MISC ---
Miscellaneous Note Note: Over night HPI vitals and labs, imaging studies have been reviewed, patient currently has remained afebrile, was complaining of Overall not feeling well, but she has improved since yesterday, she has been continued on IV antibiotic, blood culture has been drawn, urine culture is pending. Nicotine patch has been offered.
[2023-03-24] VITALS (16 sets, daily range): BP systolic 132–157; BP diastolic 64–89; PULSE 65–87; RESP 16–19; TEMP 36.3–36.9; O2SAT 93–98
[2023-03-24] MEDS: enoxaparin 40 mg/0.4 mL Syringe SUBCUT (02:39)
[2023-03-24] MEDS: HYDROcodone-acetaminophen 5-325 mg Tablet 1 TAB PO ×5 (03:17→23:11)
[2023-03-24 05:16] LABS: Basophils % 0.2 %; Eosinophils % 0.1 %; Hematocrit 39.1 % (37.0-47.0); Hemoglobin 12.9 g/dL (11.5-15.3); Lymphocytes # 1.6 10^3/uL (0.8-4.8); Mean Corpuscular Hemoglobin 32.1 pg (28.0-34.0); Mean Corpuscular Volume 97.3 fl (81-99); Monocytes # 0.8 10^3/uL (0.2-0.9); Neutrophils # 6.04 10^3/uL (1.8-7.7); Neutrophils % 71.2 %; Nucleated Red Blood Cells % 0 %; Platelet Count 151 10^3/cmm (130-400); Red Blood Count 4.02 10^6/uL (4.1-5.3); Red Cell Distribution Width 12.5 % (12.1-15.1); White Blood Count 8.5 10^3/uL (4.0-10.0)
[2023-03-24 05:35] LABS: Alanine Aminotransferase 27 U/L (0-33); Albumin Level 3.6 g/dL (3.5-5.2); Alkaline Phosphatase 52 U/L (35-105); Anion Gap 14.5 (5-19); Aspartate Amino Transferase 28 U/L (0-32); Blood Urea Nitrogen 9 mg/dL (6-20); Calcium 8.5 mg/dL (8.5-10.5); Carbon Dioxide 23 mmol/L (22-29); Chloride 105 mmol/L (98-107); Creatinine Clr Calc Pharmacy 124.7781; Globulin 2.4 g/dL (1.3-4.6); Glomerular Filtration Rate 103.4 mL/min (90-130); Glucose 120 mg/dL (65-115); Magnesium 1.9 mg/dL (1.7-2.3); Osmolality Calculated 288 mOsm/kg (285-295); Potassium 3.5 mmol/L (3.5-5.1); Sodium 139 mmol/L (136-145); Total Bilirubin 0.7 mg/dL (0.15-1.2)
[2023-03-24] MEDS: ipratropium-albuterol 3 mL Neb INHALATION ×4 (07:50→19:42)
[2023-03-24] MEDS: predniSONE 5 mg Tablet PO (09:43)
[2023-03-24] MEDS: nicotine 21 mg Patch 1 PATCH TRANSDERMA (09:44)
[2023-03-24] MEDS: sodium chloride 0.9% 1,000 ML 100 ML IV ×2 (09:44→23:13)
[2023-03-24] MEDS: pantoprazole DR 40 mg Tablet PO ×2 (09:45→17:43)
--- NOTE | 2023-03-24 17:09 | PM.PN ---
Subjective Subjective: Mental status is much improved today. Patient is alert awake oriented, conversant. at bedside currently states much improved compared to Friday. Pain over right flank is improving. Medications: Reviewed: Yes Vitals/I&O/Wt Last Vital Signs Temp 98.4 F 03/24/23 15:22 Pulse 75 03/24/23 15:31 Resp 18 03/24/23 15:25 BP 150/89 03/24/23 15:22 Pulse Ox 98 03/24/23 15:25 O2 Del Method Room Air 03/24/23 15:25 03/24/23 03/24/23 03/24/23 06:59 14:59 22:59 Intake Total 200 / 2775 1335 / 1335 Balance 200 / 2775 1335 / 1335 Weight last 48 hrs Weight 99.79 kg Physical Exam Narrative: General: No acute distress, AO x3 HEENT: PERRLA, pupils bilaterally equal and reactive, pallors not present Chest: Normal vesicular breath sounds, no added sounds, equal good air entry bilaterally CVS: S1-S2 regular, no murmurs, no tachycardia, no gallops, no rubs Abdomen: Soft, nontender, no organomegaly, bowel sounds present Neuro: No focal deficits, no facial deformity, AO x3, power 5/5 in all limbs Data 03/24/23 04:54 03/24/23 04:54 Micro: Microbiology 03/23/23 01:01 Urine Culture - Preliminary Urine Catheterized Gram Negative Rods 03/22/23 23:29 Blood Culture - Preliminary Blood NEGATIVE TO DATE 03/22/23 23:19 Blood Culture - Preliminary Blood NEGATIVE TO DATE A&P Assessment and plan (1) UTI (urinary tract infection): (2) Fever: (3) Hypokalemia: (4) Acute encephalopathy: (5) Ankylosing spondylitis: (6) Pyelonephritis: Plan 58-year-old lady with ankylosing spondylitis on Cosentyx as outpatient, presenting with fever chills and clinical evidence of pyelonephritis. Clinically she reports back pain starting 4 to 5 days prior to onset of symptoms. On Friday the pain was acutely worse. There was tenderness associated in her right flank. Given a positive UA, has clinical signs and symptoms compatible with UTI and right flank tenderness, clinical diagnosis of pyelonephritis. No obstruction noted on CT abdomen pelvis. She has a history of recurrent UTIs, she takes AZO at the onset of symptoms for dysuria, however has not had a pyelonephritis in the past. Currently she is showing gram-negative rods from the urine culture pending further identification. Blood culture is currently remaining negative to date Altered mental status likely related to metabolic encephalopathy from her acute infection, currently clinically improving. Continue empiric treatment with ceftriaxone 1 g IV daily while pending urine cultures. Continue IV fluids normal saline at 100 cc an hour Resume home medications including citalopram, lamotrigine and sulfasalazine Full code Lovenox for DVT prophylaxis Attestations Medical Necessity Statement*: Continued admission for treatment with IV antibiotics for acute pyelonephritis, pending urine cultures Coding Level of Care Code Acute Code for Chg Fwd Moderate MDM includes number and complexity of problems actively addressed during encounter, amount and/or complexity of data reviewed/ordered and described risk of complication, morbidity or mortality of management as documented Diagnoses UTI (urinary tract infection) N39.0 Fever R50.9 Hypokalemia E87.6 Acute encephalopathy G93.40 Ankylosing spondylitis M45.9 Pyelonephritis N12
[2023-03-24] MEDS: atorvastatin 40 mg Tablet PO (17:43)
[2023-03-24] MEDS: sulfaSALAzine 500 mg Tablet 1000 MG PO (17:43)
[2023-03-24] MEDS: diclofenac 1% Topical Gel 100 gm 4 APPLIC TOPICAL (20:52)
--- NOTE | 2023-03-24 20:55 | PC.NURSE ---
IV IV was out at shift change. Reported unsuccessful restart by day shift nurses. This nurse and one other also unsucessful. supervisor [employer] is going to try US IV placement as soon as has time. Pt is not wanting more attempts at this time but is willing for US attempt
[2023-03-24] MEDS: cefTRIAXone 1,000 MG in sodium chloride 0.9% (plus) 50 ML 100 MG IV (23:11)
[2023-03-25] VITALS (9 sets, daily range): BP systolic 149–159; BP diastolic 75–82; PULSE 70–77; RESP 17–20; TEMP 36.4–37.2; O2SAT 93–97
[2023-03-25] MEDS: enoxaparin 40 mg/0.4 mL Syringe SUBCUT (02:29)
[2023-03-25] MEDS: ipratropium-albuterol 3 mL Neb INHALATION ×2 (08:01→11:10)
[2023-03-25] MEDS: citalopram 20 mg Tablet 40 MG PO (08:56)
[2023-03-25] MEDS: sulfaSALAzine 500 mg Tablet 1000 MG PO (08:56)
[2023-03-25] MEDS: lamoTRIgine 100 mg Tablet 200 MG PO (08:56)
[2023-03-25] MEDS: diclofenac 1% Topical Gel 100 gm 4 APPLIC TOPICAL ×2 (08:57→12:53)
[2023-03-25] MEDS: pantoprazole DR 40 mg Tablet PO (08:57)
[2023-03-25] MEDS: predniSONE 5 mg Tablet PO (08:57)
[2023-03-25] MEDS: nicotine 21 mg Patch 1 PATCH TRANSDERMA (08:57)
[2023-03-25] MEDS: ondansetron 2 mg/ML SDV 2 mL 4 MG IVP (10:41)
[2023-03-25] MEDS: sodium chloride 0.9% 1,000 ML 100 ML IV (12:19)
[2023-03-25] MEDS: HYDROcodone-acetaminophen 5-325 mg Tablet 1 TAB PO (12:55)
[2023-03-25] MEDS: cefTRIAXone 1,000 MG in sodium chloride 0.9% (plus) 50 ML 100 MG IV (14:11)
--- NOTE | 2023-03-25 16:34 | P.DS_ITS ---
Discharge Providers Date of Admission: 03/23/23 02:12 Date of Discharge: March 25, 2023 Attending Provider at Admission: Tuan Clayton MD Attending Provider at Discharge: Mariangel Davidson MD Primary Care Provider: Nora Bryant Diagnoses at Discharge Discharge Diagnosis (1) UTI (urinary tract infection): Status: Acute (2) Fever: Status: Acute (3) Hypokalemia: Status: Acute (4) Acute encephalopathy: Status: Acute (5) Ankylosing spondylitis: Status: Acute (6) Pyelonephritis: Status: Acute Reason for Visit Reason for Visit: FEVER Hospital Course Hospital Course 58-year-old lady with ankylosing spondylitis on Cosentyx as outpatient, presented with fever chills, altered mental status and clinical evidence of pyelonephritis. She reported back pain starting 4 to 5 days prior to onset of symptoms.? On Friday the pain was acutely worse.? There was tenderness associated in her right flank. Given a positive UA, has clinical signs and symptoms compatible with UTI and right flank tenderness, clinical diagnosis of pyelonephritis. No obstruction noted on CT abdomen pelvis. Urine culture showed Dockery-S E. coli. Blood culture is currently remaining negative to date Altered mental status was related to metabolic encephalopathy from her acute infection. She received treatment with Ceftriaxone 1g iv q24h, transitioned to Po ciprofloxacin 500mg BID. She improved significantly. Her mental status has now improved back to her baseline. She is currently awake, alert and oriented x 3. She is recommended to hold cosyntex while being treated for acute infection. Instructed to call Dr. shah in one week to update regarding her symptoms. She is prescribed Bactrim DS BID for future recurrence of UTI, to start aat first signs of dysuria. Physical Exam Narrative: General: No acute distress, AO x3 HEENT: PERRLA, pupils bilaterally equal and reactive, pallors not present Chest: Normal vesicular breath sounds, no added sounds, equal good air entry bilaterally CVS: S1-S2 regular, no murmurs, no tachycardia, no gallops, no rubs Abdomen: Soft, nontender, no organomegaly, bowel sounds present Neuro: No focal deficits, no facial deformity, AO x3, power 5/5 in all limbs Discharge Data Studies Completed and Pending Completed Studies During Hospitalization Category Date Time Status CT abdomen pelvis w con* [id number] Stat Cat Scan 07/22/23 22:[address] head wo con* [id number] Stat Cat Scan 03/22/23 23:13 Completed XR chest 1V portable [id number] Stat Exams 03/22/23 22:41 Completed Pending at discharge Category Date Time Status Blood Culture Stat Lab 03/22/23 23:29 Results Radiology Impressions Abdomen/Pelvis CT 03/22/23 22:41 IMPRESSION: No acute findings. Chest X-Ray 03/22/23 22:41 IMPRESSION: No acute findings. Head CT 03/22/23 23:13 IMPRESSION: 1. Enhancement of the intracranial blood vessels from recent CT abdomen pelvis with contrast. 2. No acute intracranial findings. Laboratory Results WBC 8.5 10^3/uL (4.0-10.0) 03/24/23 04:54 RBC 4.02 10^6/uL (4.1-5.3) L 03/24/23 04:54 Hgb 12.9 g/dL (11.5-15.3) 03/24/23 04:54 Hct 39.1 % (37.0-47.0) 03/24/23 04:54 MCV 97.3 fl (81-99) 03/24/23 04:54 MCH 32.1 pg (28.0-34.0) 03/24/23 04:54 MCHC 33.0 g/dL (30.0-36.0) 03/24/23 04:54 RDW 12.5 % (12.1-15.1) 03/24/23 04:54 Plt Count 151 10^3/cmm (130-400) 03/24/23 04:54 MPV 10.0 fL (7.4-10.4) 03/24/23 04:54 Neut % (Auto) 71.2 % 03/24/23 04:54 Lymph % (Auto) 19.0 % 03/24/23 04:54 [place] % (Auto) 9.0 % 03/24/23 04:54 Eos % (Auto) 0.1 % 03/24/23 04:54 Baso % (Auto) 0.2 % 03/24/23 04:54 Neut # (Auto) 6.04 10^3/uL (1.8-7.7) 03/24/23 04:54 Lymph # (Auto) 1.6 10^3/uL (0.8-4.8) 03/24/23 04:54 [place] # (Auto) 0.8 10^3/uL (0.2-0.9) 03/24/23 04:54 Eos # (Auto) 0.0 10^3/uL (0.0-0.8) 03/24/23 04:54 Baso # (Auto) 0.0 10^3/uL (0.0-0.1) 03/24/23 04:54 Nucleated RBC % (auto) 0 % 03/24/23 04:54 Nucleated RBCs # 0.0 /100WBC 03/24/23 04:54 PT 14.20 SECONDS (12.1-14.9) 03/22/23 23:19 INR 1.07 (0.8-1.2) 03/22/23 23:19 Sodium 139 mmol/L (136-145) 03/24/23 04:54 Potassium 3.5 mmol/L (3.5-5.1) 03/24/23 04:54 Chloride 105 mmol/L (98-107) 03/24/23 04:54 Carbon Dioxide 23 mmol/L (22-29) 03/24/23 04:54 Anion Gap 14.5 (5-19) 03/24/23 04:54 BUN 9 mg/dL (6-20) 03/24/23 04:54 Creatinine 0.6 mg/dL (0.5-0.9) 03/24/23 04:54 GFR Calculation 103.4 mL/min (90-130) 03/24/23 04:54 Glucose 120 mg/dL (65-115) H 03/24/23 04:54 Calculated Osmolality 288 mOsm/kg (285-295) 03/24/23 04:54 Lactic Acid 1.5 mmol/L (0.5-2.2) 03/22/23 23:19 Calcium 8.5 mg/dL (8.5-10.5) 03/24/23 04:54 Magnesium 1.9 mg/dL (1.7-2.3) 03/24/23 04:54 Total Bilirubin 0.7 mg/dL (0.15-1.2) 03/24/23 04:54 AST 28 U/L (0-32) 03/24/23 04:54 ALT 27 U/L (0-33) 03/24/23 04:54 Alkaline Phosphatase 52 U/L (35-105) 03/24/23 04:54 Total Protein 6.0 g/dL (6.6-8.7) L 03/24/23 04:54 Albumin 3.6 g/dL (3.5-5.2) 03/24/23 04:54 Globulin 2.4 g/dL (1.3-4.6) 03/24/23 04:54 Lipase 22 U/L (13-60) 03/22/23 23:19 TSH 0.86 uIU/mL (0.27-4.20) 03/22/23 23:19 Urine Color Dark yellow (Yellow) 03/23/23 00:22 Urine Appearance Clear (CLEAR) 03/23/23 00:22 Urine pH 6.5 (5-7) 03/23/23 00:22 Ur Specific [place] 1.000 (1.005-1.030) L 03/23/23 00:22 Urine Protein 1+ (Negative) H 03/23/23 00:22 Urine Glucose (UA) Norm (Normal) 03/23/23 00:22 Urine Ketones Negative (Negative) 03/23/23 00:22 Urine Blood 2+ (Negative) H 03/23/23 00:22 Urine Nitrate Positive (Negative) H 03/23/23 00:22 Urine Bilirubin Neg (Negative) 03/23/23 00:22 Urine Urobilinogen Norm mg/dL (Negative) 03/23/23 00:22 Ur Leukocyte Esterase Trace (Negative) H 03/23/23 00:22 Urine RBC 5-10 /hpf (0-2) H 03/23/23 00:22 Urine WBC 25-40 /hpf (0-5) H 03/23/23 00:22 Ur Squamous Epith Cells 10-15 /hpf (0-5) H 03/23/23 00:22 Amorphous Sediment Not Reportable 03/23/23 00:22 Urine Bacteria 2+ /hpf (NONE) H 03/23/23 00:22 SARS-CoV-2 Ag (Rapid) negative (Negative) 03/22/23 23:01 Vitals Last Vital Signs Temp 99.0 F 03/25/23 11:32 Pulse 74 03/25/23 15:16 Resp 18 03/25/23 11:32 BP 149/79 03/25/23 11:32 Pulse Ox 93 03/25/23 11:32 O2 Del Method Room Air 03/25/23 11:32 Discharge Plan Discharge Patient Disposition: Home Condition: Stable Prescriptions: New ciprofloxacin HCl 500 mg tablet 500 mg PO BID 10 Days Qty: 20 0RF Bactrim DS 800-160 mg tablet 1 tab PO BID PRN (Reason: UTI) 5 Days Qty: 10 3RF Rx Instructions: prn for UTI, start at first signs of dysuria Continued trazodone 50 mg tablet 50 mg PO DAILY gabapentin 600 mg tablet 600 mg PO DAILY lamotrigine 200 mg tablet 200 mg PO DAILY cetirizine 10 mg capsule 10 mg PO DAILY hydrocodone-acetaminophen 7.5-325 mg tablet 1 tab PO Q4H PRN (Reason: Pain) losartan-hydrochlorothiazide 100-25 mg tablet 1 tab PO DAILY simvastatin 20 mg tablet 20 mg PO DAILY diclofenac sodium 1 % gel 4 g topical QID Qty: 100 2RF Rx Instructions: apply to affected area as needed pantoprazole 40 mg tablet,delayed release (DR/EC) See Rx Instructions PO DAILY Qty: 60 3RF Rx Instructions: take 1 in AM 30 minutes before meal and 1 in radha. PO daily; sulfasalazine 500 mg tablet 1 g PO BID Qty: 120 3RF Rx Instructions: take with food pilocarpine HCl 5 mg tablet 5 mg PO TID Qty: 90 3RF prednisone 5 mg tablet 5 mg PO DAILY citalopram 40 mg tablet 40 mg PO DAILY potassium chloride 10 mEq tablet extended release 10 meq PO DAILY Held Cosentyx (2 Syringes) 150 mg/mL syringe 300 mg SUBCUT .V4htali Qty: 2 3RF Hold Instructions: Resume on 04/01/23. Discharge Orders: Discharge Order (Routine); Ordered 03/25/23 Ordered By: Mariangel Davidson Referrals: Nora Bryant FNP [Primary Care Provider] - 04/08/23 8:30 am Discharge Diet: Usual diet Discharge Activity: Resume usual activity Patient Instructions: Ciprofloxacin (By mouth), Sulfamethoxazole/Trimethoprim (By mouth), Urinary Tract Infection in Women (GEN), Opioid Safety, Pyelonephritis Activity Restrictions/Additional Instructions: Skip your next Cosyntex dose which is due in [address] Shah in one week to review your symptoms Take ciprofloxacin for 10 days for current UTI now. Use bactrim only as needed for furture episodes. DO NOT take together with Ciprofloxacin for this current infection Discharge Attestations Time Spent in Discharge Care*: greater than 30 min Quality Metrics Clinical Quality Measures [ No reported AMI, CVA or VTE this stay] Coding Level of Care Code Acute Code for [facility] Diagnoses UTI (urinary tract infection) N39.0 Fever R50.9 Hypokalemia E87.6 Acute encephalopathy G93.40 Ankylosing spondylitis M45.9 Pyelonephritis N12
== END 2023-03-25 15:15 | disposition home or self-care (01) | DRG 689 ==
LOC: ER 23:06 → MEDSURG 03-23 02:14
PROVIDERS: Admitting Provider Internal Medicine; Emergency Provider Emergency Medicine; PCP Nurse Practitioner Family; Visit Provider Student in an Organized Health Care Education/Training Program
DX: N12 Tubulo-interstitial nephritis, not specified as acute or chronic (principal); G93.41 Metabolic encephalopathy; D84.821 Immunodeficiency due to drugs; N39.0 Urinary tract infection, site not specified; B96.20 Unspecified Escherichia coli [E. coli] as the cause of diseases classified elsewhere; M45.9 Ankylosing spondylitis of unspecified sites in spine; Z79.891 Long term (current) use of opiate analgesic; Z79.52 Long term (current) use of systemic steroids; G89.29 Other chronic pain; M54.50 Low back pain, unspecified; M79.7 Fibromyalgia; K21.9 Gastro-esophageal reflux disease without esophagitis; E78.5 Hyperlipidemia, unspecified; I10 Essential (primary) hypertension; K58.9 Irritable bowel syndrome, unspecified; M19.90 Unspecified osteoarthritis, unspecified site; F17.200 Nicotine dependence, unspecified, uncomplicated; T38.0X5A Adverse effect of glucocorticoids and synthetic analogues, initial encounter; E87.6 Hypokalemia
CPT/HCPCS: 36415; 70450; 71045; 74177; 80053; 81001; 83605; 83690; 83735; 84443; 85025; 85610; 87040; 87077; 87086; 87186; 87426; 93005; 94640; 96365; 96372; 96375; 99285; J0696; J1650; J2405; J3480; J7030; J7512; Q9967

== ENCOUNTER → 2023-06-09 13:46 | Outpatient (BNVA) | payer MEDICARE, SELFPAY | PROVIDERS: PCP Nurse Practitioner Family; Visit Provider Internal Medicine Rheumatology | DX: Z79.899 Other long term (current) drug therapy (principal); M46.90 Unspecified inflammatory spondylopathy, site unspecified; Z15.89 Genetic susceptibility to other disease; M46.1 Sacroiliitis, not elsewhere classified; Z71.89 Other specified counseling | CPT/HCPCS: 99214 ==

== ENCOUNTER 2023-09-23 12:05 | Outpatient (CLI) | payer MEDICARE, SELFPAY ==
[2023-09-23 12:52] LABS: Basophils % 0.4 %; Eosinophils % 0.3 %; Hematocrit 44.6 % (36-47); Lymphocytes # 1.8 10^3/uL (0.8-4.8); Lymphocytes % 20.3 %; Mean Corpuscular HGB Conc 33.6 g/dL (30-55); Mean Corpuscular Hemoglobin 32.3 pg (27-33); Mean Corpuscular Volume 96.1 fl (85-98); Mean Platelet Volume 9.7 fL (7.4-10.4); Monocytes # 0.5 10^3/uL (0.2-0.9); Monocytes % 5.1 %; Neutrophils # 6.65 10^3/uL (1.8-7.7); Neutrophils % 73.3 %; Nucleated Red Blood Cells % 0 %; Platelet Count 194 10^3/cmm (157-399); Red Blood Count 4.64 10^6/uL (3.85-5.65); Red Cell Distribution Width 12.5 % (12.1-15.1); White Blood Count 9.07 10^3/uL (3.29-11.43)
[2023-09-23 13:07] LABS: Alanine Aminotransferase 42 U/L (0-33); Albumin Level 4.2 g/dL (3.5-5.2); Alkaline Phosphatase 61 U/L (35-105); Aspartate Amino Transferase 34 U/L (0-32); C Reactive Protein 4.8 mg/L (0.0-4.9); Globulin 3.2 g/dL (1.3-4.6); Glomerular Filtration Rate 64.8 mL/min (90-130); Total Bilirubin 0.5 mg/dL (0.15-1.2); Total Protein 7.4 g/dL (6.6-8.7)
== END 2023-09-23 12:06 | disposition home or self-care (01) ==
LOC: LAB 12:08
PROVIDERS: PCP Nurse Practitioner Family; Visit Provider Internal Medicine Rheumatology
DX: Z79.899 Other long term (current) drug therapy (principal); M46.90 Unspecified inflammatory spondylopathy, site unspecified
CPT/HCPCS: 36415; 80076; 82565; 85025; 86140

== ENCOUNTER → 2023-10-13 12:26 | Outpatient (BNVA) | payer MEDICARE, SELFPAY | PROVIDERS: PCP Nurse Practitioner Family; Visit Provider Internal Medicine Rheumatology | DX: M45.9 Ankylosing spondylitis of unspecified sites in spine (principal); H57.10 Ocular pain, unspecified eye; Z15.89 Genetic susceptibility to other disease; M46.90 Unspecified inflammatory spondylopathy, site unspecified; M46.1 Sacroiliitis, not elsewhere classified; Z79.899 Other long term (current) drug therapy; Z71.89 Other specified counseling | CPT/HCPCS: 99214 ==

== ENCOUNTER 2023-12-02 10:18 | Outpatient (CLI) | payer MEDICARE, SELFPAY ==
--- NOTE | 2023-12-02 10:20 | MM_ITS ---
WS: [id number] BILATERAL 3D TOMOSYNTHESIS DIGITAL SCREENING MAMMOGRAPHY WITH CAD CLINICAL INFORMATION: SCREENING HISTORY: Screening mammogram. No current complaints. COMPARISON: 2020 TECHNIQUE: Bilateral CC and MLO views. FINDINGS: Scattered fibroglandular densities bilaterally. No suspicious focal mass, asymmetry, calcifications, or architectural distortion. No evidence of malignancy. A few incidental punctate calcifications. IMPRESSION: MM/[place] [id number] BI-RADS: 2-Benign FOLLOW UP: 1 Year Follow-up Recommend return to annual screening mammography.
== END 2023-12-02 10:19 | disposition home or self-care (01) ==
LOC: RAD 10:18
PROVIDERS: PCP Nurse Practitioner Family; Visit Provider Nurse Practitioner Family
DX: Z12.31 Encounter for screening mammogram for malignant neoplasm of breast (principal)
CPT/HCPCS: 77063; 77067

== ENCOUNTER → 2024-02-02 09:44 | Outpatient (BNVA) | payer MEDICARE, SELFPAY | PROVIDERS: PCP Nurse Practitioner Family; Visit Provider Internal Medicine Rheumatology | DX: M46.90 Unspecified inflammatory spondylopathy, site unspecified (principal); M45.9 Ankylosing spondylitis of unspecified sites in spine; Z79.899 Other long term (current) drug therapy; Z15.89 Genetic susceptibility to other disease; M46.1 Sacroiliitis, not elsewhere classified; Z71.89 Other specified counseling | CPT/HCPCS: 36415; 72040; 72072; 72100; 80076; 82306; 82565; 85025; 85651; 86140; 99214 ==

== ENCOUNTER → 2024-09-06 09:35 | Outpatient (BNVA) | payer MEDICARE, SELFPAY | PROVIDERS: PCP Nurse Practitioner Family; Referring Provider Nurse Practitioner Family; Visit Provider Psychiatry & Neurology Neurology | DX: G43.011 Migraine without aura, intractable, with status migrainosus (principal); G43.909 Migraine, unspecified, not intractable, without status migrainosus | CPT/HCPCS: 99203 ==

== ENCOUNTER → 2024-09-21 09:39 | Outpatient (BNVA) | payer MEDICARE, SELFPAY | PROVIDERS: PCP Nurse Practitioner Family; Visit Provider Internal Medicine Rheumatology | DX: M46.90 Unspecified inflammatory spondylopathy, site unspecified (principal); Z79.899 Other long term (current) drug therapy; Z15.89 Genetic susceptibility to other disease; M46.1 Sacroiliitis, not elsewhere classified; Z71.89 Other specified counseling | CPT/HCPCS: 36415; 80076; 82565; 85025; 85652; 86140; 99214 ==

== ENCOUNTER → 2024-12-21 14:14 | Outpatient (BNVA) | payer MEDICARE, SELFPAY | PROVIDERS: PCP Nurse Practitioner Family; Visit Provider Psychiatry & Neurology Neurology | DX: G43.011 Migraine without aura, intractable, with status migrainosus (principal); G43.909 Migraine, unspecified, not intractable, without status migrainosus | CPT/HCPCS: 99212 ==

== ENCOUNTER 2025-01-06 07:29 | Outpatient (CLI) | payer MEDICARE, SELFPAY ==
--- NOTE | 2025-01-06 08:00 | CT_ITS ---
WS: [id number] CTA HEAD AND NECK TECHNIQUE: Contrast enhanced CTA of the head and neck with coronal and sagittal reformatted images and maximum intensity projection (MIP) images. NASCET criteria utilized. CLINICAL INFORMATION: G43.011 - Migraine without aura, intractable, with status... COMPARISON: None. DLP: 2672.[address] scans at [facility] use at least one of these dose optimization techniques: automated exposure control; mA and/or kV adjustment per patient size (includes targeted exams where dose is matched to clinical indication); or iterative reconstruction. FINDINGS: RIGHT: RIGHT common carotid artery is patent. No significant RIGHT ICA stenosis. LEFT: LEFT common carotid artery is patent. No significant LEFT ICA stenosis. Mild LEFT carotid bulb calcification. RIGHT dominant vertebral artery. Small LEFT vertebral artery mainly ends in PICA. INTRACRANIAL CTA: Small basilar artery is patent. Anterior dominant circulation. Patent posterior communicating arteries bilaterally with near persistent bilateral configuration technician. Both ICAs are patent at the skull base. Mild cavernous carotid calcification. Normal vascularity to the MAYNOR and MCA territories bilaterally. No evidence of proximal flow-limiting stenosis. Aortic calcification. Multinodular thyroid with small thyroid nodules. Proximal subclavian arteries are patent. Paranasal sinuses and mastoid air cells are well aerated. Mild spondylitic changes cervical spine. CT/CT angio headneck* [id number] IMPRESSION: 1. No significant cervical ICA stenosis. 2. No proximal flow-limiting intracranial stenosis
[2025-01-06] MEDS: iohexol 350 mg/mL 500 mL Btl (per mL) IV (08:13)
--- NOTE | 2025-01-06 09:30 | CT_ITS ---
WS: [id number] CT HEAD TECHNIQUE: Noncontrast and contrast-enhanced CT of the head. CLINICAL INFORMATION: G43.011 - Migraine without aura, intractable, with status... COMPARISON: 2022 DLP: 2672.[address] scans at [facility] use at least one of these dose optimization techniques: automated exposure control; mA and/or kV adjustment per patient size (includes targeted exams where dose is matched to clinical indication); or iterative reconstruction. FINDINGS: No evidence of intracranial hemorrhage or mass effect. Ventricular system and basal cisterns are patent. Mild parenchymal volume loss. No abnormal intracranial enhancement. No hydrocephalus. No extra-axial fluid collections. Paranasal sinuses and mastoid air cells are well aerated. CT/CT head wo/w con [id number] IMPRESSION: 1. No acute intracranial findings. 2. Mild parenchymal volume loss. 3. No abnormal intracranial enhancement.
== END 2025-01-06 07:30 | disposition home or self-care (01) ==
LOC: RAD 07:30
PROVIDERS: PCP Nurse Practitioner Family; Visit Provider Psychiatry & Neurology Neurology
DX: G43.011 Migraine without aura, intractable, with status migrainosus (principal); R93.0 Abnormal findings on diagnostic imaging of skull and head, not elsewhere classified; I65.23 Occlusion and stenosis of bilateral carotid arteries; I70.0 Atherosclerosis of aorta; E04.2 Nontoxic multinodular goiter; M47.892 Other spondylosis, cervical region
CPT/HCPCS: 70470; 70496; 70498

== ENCOUNTER → 2025-01-11 10:11 | Outpatient (BNVA) | payer MEDICARE, SELFPAY | PROVIDERS: PCP Nurse Practitioner Family; Visit Provider Internal Medicine Rheumatology | DX: M79.671 Pain in right foot (principal); M79.672 Pain in left foot; Z15.89 Genetic susceptibility to other disease; M46.90 Unspecified inflammatory spondylopathy, site unspecified; Z79.899 Other long term (current) drug therapy; M46.1 Sacroiliitis, not elsewhere classified; Z71.89 Other specified counseling | CPT/HCPCS: 36415; 73630; 80076; 82565; 85025; 86140; 99214 ==

== ENCOUNTER → 2025-01-26 07:54 | Outpatient (BNVA) | payer MEDICARE, SELFPAY | PROVIDERS: PCP Nurse Practitioner Family; Visit Provider Podiatrist Foot & Ankle Surgery | DX: M79.671 Pain in right foot (principal); M79.672 Pain in left foot; M76.821 Posterior tibial tendinitis, right leg; M24.571 Contracture, right ankle | CPT/HCPCS: 73630; 99203 ==

== ENCOUNTER 2025-02-15 10:27 | Outpatient (CLI) | payer MEDICARE, SELFPAY ==
--- NOTE | 2025-02-15 | MM_ITS ---
WS: [id number] BILATERAL 3D TOMOSYNTHESIS DIGITAL SCREENING MAMMOGRAPHY WITH CAD CLINICAL INFORMATION: ANNUAL SCREENING HISTORY: Screening mammogram. No current complaints. COMPARISON: 2023 TECHNIQUE: Bilateral CC and MLO views. FINDINGS: Scattered fibroglandular densities bilaterally. No suspicious focal mass, asymmetry, calcifications, or architectural distortion. No evidence of malignancy. A few incidental punctate calcifications anterior LEFT breast MM/MM scr BI tomosynthesis [id number] IMPRESSION: DENSITY: There are scattered areas of fibroglandular density. BI-RADS: 2 - Benign. FOLLOW UP: 1 Year Follow-up Recommend return to annual screening mammography.
== END 2025-02-15 10:28 | disposition home or self-care (01) ==
LOC: RAD 10:28
PROVIDERS: PCP Nurse Practitioner Family; Visit Provider Nurse Practitioner Family
DX: Z12.31 Encounter for screening mammogram for malignant neoplasm of breast (principal); R92.323 Mammographic fibroglandular density, bilateral breasts; R92.1 Mammographic calcification found on diagnostic imaging of breast
CPT/HCPCS: 77063; 77067

== ENCOUNTER 2025-02-23 10:47 | Outpatient (CLI) | payer MEDICARE, SELFPAY ==
--- NOTE | 2025-02-23 10:55 | CT_ITS ---
WS: [id number] LDCT LUNG CANCER SCREENING HISTORY: NICOTINE DEPENDENCE,CIGARETTES TECHNIQUE: Axial imaging performed from the apices to 1 cm below the costophrenic angles. Coronal and sagittal reformats are submitted with axial MIP series. All CT scans at [facility] use at least one of these dose optimization techniques: automated exposure control; mA and/or kV adjustment per patient size (includes targeted exams where dose is matched to clinical indication); or iterative reconstruction. DLP: 112.21 mGy.cm DIvol: Mean CTDIvol: 2.80 (mGy) COMPARISON: None available. Diagnostic quality: Satisfactory Lungs: No pulmonary mass or nodule. No endobronchial lesions. Heart: Normal size heart with no pericardial effusion.. Other findings: Mild atherosclerosis aorta. No mediastinal or hilar adenopathy. Small hiatal hernia. Hepatic steatosis. Prior cholecystectomy. No adrenal mass. Splenic artery calcifications. Mild increase in thoracic kyphosis. CT/CT lung screening [id number] IMPRESSION: LUNG-RADS: 1-Negative FOLLOW UP: 12 Month: Continue annual screening with LDCT OTHER FINDINGS (S MODIFIER): None.
== END 2025-02-23 10:48 | disposition home or self-care (01) ==
PROVIDERS: PCP Nurse Practitioner Family; Visit Provider Nurse Practitioner Family
DX: Z12.2 Encounter for screening for malignant neoplasm of respiratory organs (principal); F17.210 Nicotine dependence, cigarettes, uncomplicated; I70.0 Atherosclerosis of aorta; K44.9 Diaphragmatic hernia without obstruction or gangrene; K76.0 Fatty (change of) liver, not elsewhere classified; Z90.49 Acquired absence of other specified parts of digestive tract; I70.8 Atherosclerosis of other arteries; M40.294 Other kyphosis, thoracic region
CPT/HCPCS: 71271

== ENCOUNTER 2025-03-01 05:00 | Outpatient (RCR) | payer MEDICARE, SELFPAY | END 2025-03-31 23:59 | disposition home or self-care (01) | LOC: TPT 05:00 | PROVIDERS: Visit Provider Podiatrist Foot & Ankle Surgery | DX: M76.821 Posterior tibial tendinitis, right leg (principal); M24.571 Contracture, right ankle | CPT/HCPCS: 97110; 97140; 97162 ==

== ENCOUNTER 2025-03-01 11:14 | Outpatient (CLI) | payer MEDICARE, SELFPAY | END 2025-03-01 11:15 | LOC: SPT 11:14 | PROVIDERS: PCP Nurse Practitioner Family; Visit Provider Podiatrist Foot & Ankle Surgery | DX: Z46.89 Encounter for fitting and adjustment of other specified devices (principal); M24.571 Contracture, right ankle; M76.821 Posterior tibial tendinitis, right leg | CPT/HCPCS: L1902 ==

== ENCOUNTER 2025-04-01 05:00 | Outpatient (RCR) | payer MEDICARE, SELFPAY | END 2025-05-01 23:59 | disposition home or self-care (01) | LOC: TPT 05:00 | PROVIDERS: Visit Provider Podiatrist Foot & Ankle Surgery | DX: M76.821 Posterior tibial tendinitis, right leg (principal); M24.571 Contracture, right ankle | CPT/HCPCS: 97110; 97140 ==

== ENCOUNTER → 2025-04-12 09:48 | Outpatient (BNVA) | payer MEDICARE, SELFPAY | PROVIDERS: Visit Provider Podiatrist Foot & Ankle Surgery | DX: M76.821 Posterior tibial tendinitis, right leg (principal); M24.571 Contracture, right ankle | CPT/HCPCS: 20550; 20605; 99214; J1100; J3301; J9999 ==

== ENCOUNTER 2025-05-02 05:00 | Outpatient (RCR) | payer MEDICARE, SELFPAY | END 2025-05-23 09:22 | disposition home or self-care (01) | LOC: TPT 05:00 | PROVIDERS: Visit Provider Podiatrist Foot & Ankle Surgery | DX: M76.821 Posterior tibial tendinitis, right leg (principal); M24.571 Contracture, right ankle | CPT/HCPCS: 97110; 97140 ==

== ENCOUNTER → 2025-05-09 12:37 | Outpatient (BNVA) | payer MEDICARE, SELFPAY | PROVIDERS: Visit Provider Internal Medicine Rheumatology | DX: Z15.89 Genetic susceptibility to other disease (principal); M46.90 Unspecified inflammatory spondylopathy, site unspecified; M46.1 Sacroiliitis, not elsewhere classified; Z79.899 Other long term (current) drug therapy; Z71.85 Encounter for immunization safety counseling; Z98.1 Arthrodesis status; Z98.890 Other specified postprocedural states | CPT/HCPCS: 36415; 80076; 82306; 82565; 85025; 85651; 86140; 86480; 86704; 86803; 87340; 99214 ==

== ENCOUNTER → 2025-05-24 10:34 | Outpatient (BNVA) | payer MEDICARE, SELFPAY | PROVIDERS: Visit Provider Podiatrist Foot & Ankle Surgery | DX: M95.8 Other specified acquired deformities of musculoskeletal system (principal); M76.821 Posterior tibial tendinitis, right leg; M24.571 Contracture, right ankle | CPT/HCPCS: 99214 ==

== ENCOUNTER 2025-06-14 08:31 | Outpatient (CLI) | payer MEDICARE, SELFPAY ==
--- NOTE | 2025-06-14 08:45 | MRR_ITS ---
PROCEDURE INFORMATION: Exam: MR Right Lower Extremity Joint Without Contrast; Ankle Exam date and time: 06/14/2025 8:59 AM Age: 60 years old Clinical indication: Chronic right ankle pain described as catching and grinding sensation in the ankle joint. ; Additional info: Osteochondral defect TECHNIQUE: Imaging protocol: Magnetic resonance imaging of the right lower extremity without contrast. Exam focused on the ankle. COMPARISON: [place] [id number] ORTH 01/26/2025 8:03 AM FINDINGS: Bones/joints: There is diffuse reactive marrow edema within the talar head and involving the distal aspect of the talar neck. There is no discrete fracture plane identified. The talar articular margin at the navicular bone is intact without offset or depression. The talar dome is intact. There is no osteochondral lesion. To a lesser extent there is also some mild reactive marrow edema within the majority of the medial cuneiform and subtly within the base and proximal metadiaphysis of the 1st metatarsal. LIGAMENTS: Distal tibiofibular syndesmosis: Unremarkable. No tear. Anterior talofibular ligament: Unremarkable. No tear. Posterior talofibular ligament: Unremarkable. No tear. Calcaneofibular ligament: Unremarkable. No tear. Deltoid ligament complex: Unremarkable. No tear. TENDONS: Flexor tendons of foot: Unremarkable as visualized. Tibialis posterior tendon: Unremarkable as visualized. Peroneal tendons: Unremarkable as visualized. Extensor tendons of foot: Unremarkable as visualized. Tibialis anterior tendon: Unremarkable as visualized. Achilles tendon: Unremarkable as visualized. Tarsal canal (Sinus tarsi): Unremarkable. Normal signal of the fat. Tarsal tunnel: Unremarkable. Soft tissues: Unremarkable. Plantar fascia: Plantar fascia is unremarkable. MR/MR ankle RT wo con* [id number] IMPRESSION: Nonspecific reactive marrow edema within the talar head and distal talar neck. This is also seen to a lesser extent within the medial cuneiform and base of the 1st metatarsal. Consider the possibility posttraumatic marrow edema or stress reaction.
== END 2025-06-14 08:32 | disposition home or self-care (01) ==
LOC: RAD 08:35
PROVIDERS: PCP Family Medicine; Visit Provider Podiatrist Foot & Ankle Surgery
DX: M95.8 Other specified acquired deformities of musculoskeletal system (principal)
CPT/HCPCS: 73721

== ENCOUNTER 2025-06-21 10:59 | Outpatient (CLI) | payer MEDICARE, SELFPAY | END 2025-06-21 11:00 | disposition home or self-care (01) | LOC: SPT 11:00 | PROVIDERS: PCP Family Medicine; Visit Provider Podiatrist Foot & Ankle Surgery | DX: Z46.89 Encounter for fitting and adjustment of other specified devices (principal); M25.579 Pain in unspecified ankle and joints of unspecified foot; M79.673 Pain in unspecified foot | CPT/HCPCS: 99214; L4361 ==

== ENCOUNTER → 2025-07-05 09:22 | Outpatient (BNVA) | payer MEDICARE, SELFPAY | PROVIDERS: PCP Family Medicine; Visit Provider Podiatrist Foot & Ankle Surgery | DX: M76.821 Posterior tibial tendinitis, right leg (principal); M24.571 Contracture, right ankle | CPT/HCPCS: 99213 ==